=== PATIENT | male | born 1995 | race American Indian/Alaskan Native ===

== ENCOUNTER 2019-10-04 15:34 | Emergency (ER) | payer SELFPAY ==
[2019-10-04 15:40] VITALS: BP 124/87
--- NOTE | 2019-10-04 15:41 | Event Note ---
ED Screening Note Date of service: 10/04/19 Time: 15:39 ED Screening Note: 24 y/o male comes in for head injury. Had a fall and hit head. Having memory lost. This initial assessment/diagnostic orders/clinical plan/treatment(s) is/are subject to change based on patients health status, clinical progression and re- assessment by fellow clinical providers in the ED. Further treatment and workup at subsequent clinical providers discretion. Patient/guardian urged not to elope from the ED as their condition may be serious if not clinically assessed and managed. Initial orders include:
--- NOTE | 2019-10-04 16:28 | Cat Scan Report ---
CT head/brain wo con INDICATION: head injury. TECHNIQUE: Routine CT head without contrast. All CT scans at this location are performed using CT dose reduction for ALARA by means of automated exposure control. COMPARISON: None. FINDINGS: BRAIN / INTRACRANIAL CONTENTS: No acute hemorrhage, brain edema, mass effect, or hydrocephalus. Keren l vargas-white differentiation. No chronic infarct or focal atrophy. Normal brain volume and ventricula r/sulcal size for age. CALVARIUM/SKULL BASE/CRANIOCERVICAL JUNCTION: No evidence of fracture. ORBITS: No significant abnormality of visualized orbits. SINUSES / MASTOIDS: No significant abnormality of visualized sinuses and mastoid air cells. ADDITIONAL FINDINGS: None. IMPRESSION: 1. Negative head CT. Signer Name: Sidney Stephenson MD Signed: 10/04/2019 4:24 PM Workstation Name: [id number]
--- NOTE | 2019-10-04 16:54 | Emergency Department Report ---
Head Injury w/o Laceration - HPI Chief Complaint: Head Injury Stated Complaint: POSS CONCUSSION Time Seen by Provider: 10/04/19 15:39 Occurred When: Today Mechanism: Fall Severity: mild Head Inj w/o Lac: No Loss of Consciousness, No Nausea, No Blurred Vision, No Altered Mental Status, No Headache, No Focal Deficit, No Swelling, No Bruising, No Break in Skin, No Bleeding Other History: 24-year-old male presents to the ED today stating that he fell down the stairs and hit his head earlier today. Patient is here today with his father stating that after falling down the stairs patient was able to get up. Patient states that he does not remember falling down stairs. He doesn't remember hitting his head. ED General PMH - Past Medical History General Medical History: no medical history Surgical History: no surgical history - Family History Significant Family History: no pertinent family hx - Social History Smoking Status: Current Every Day Smoker Alcohol Use: none ED Neuro ROS - Review of Systems Constitutional: no symptoms reported Eyes (ROS): no symptoms reported Ears, Nose, Mouth, Throat: no symptoms reported Respiratory: no symptoms reported Cardiology: no symptoms reported Gastrointestinal/Abdominal: no symptoms reported Genitourinary: no symptoms reported Musculoskeletal: no symptoms reported Skin: no symptoms reported Neurological: no symptoms reported Head Injury W/O Lac Exam - Exam General: Vital signs noted. No distress. Alert and acting appropriately. Head: Yes Pupils are PERRL, No Hemotympanum, No Hematoma/Ecchymosis, No Epistaxis, No Stepoff/Deformity, No Laceration, No Abrasion Chest, Abd, & Ext: Yes Clear Lung Sounds, Yes Regular Heart Rhythm, No Neck Pain, No Chest Injury/Pain, No Heart Murmur, No Abdominal Tenderness, No Back Tenderness, No Extremity Injury Neuroligical (Head Inj W/O Lac: Yes Normal Speech, Yes Normal Gait, No Lethargy, No Disorientation, No Focal Numbness, No Focal Weakness Exam: Patient had no neurological deficit. Full range of motion in all extremities. No loss of sensation ED Disposition Clinical Impression: Fall (on) (from) other stairs and steps, initial encounter Disposition: DC- TO HOME OR SELFCARE Is pt being admited?: No Does the pt Need Aspirin: No Condition: Stable Instructions: Minor Head Injury (ED), Concussion (ED) Additional Instructions: Make sure to follow up with the primary care physician as discussed. Take all your medications as you've been prescribed. If you have any worsening symptoms or develop new symptoms please return to ED immediately. Referrals: [facility] [Outside] - 3-5 Days [facility] [Outside] - 3-5 Days [facility] [Outside] - 3-5 Days GAB FONTENOT MD [Staff Physician] - 3-5 Days Forms: Accompanied Note, Work/School Release Form(ED) Time of Disposition: 17:08 ED Medical Decision Making - Radiology Data Radiology results: report reviewed, image reviewed CT head/brain wo con INDICATION: head injury. TECHNIQUE: Routine CT head without contrast. All CT scans at this location are performed using CT dose reduction for ALARA by means of automated exposure control. COMPARISON: None. FINDINGS: BRAIN / INTRACRANIAL CONTENTS: No acute hemorrhage, brain edema, mass effect, or hydrocephalus. Normal vargas-white differentiation. No chronic infarct or focal atrophy. Normal brain volume and ventricular/sulcal size for age. CALVARIUM/SKULL BASE/CRANIOCERVICAL JUNCTION: No evidence of fracture. ORBITS: No significant abnormality of visualized orbits. SINUSES / MASTOIDS: No significant abnormality of visualized sinuses and mastoid air cells. ADDITIONAL FINDINGS: None. IMPRESSION: 1. Negative head CT. Signer Name: Sidney Stephenson MD Signed: 10/04/2019 4:24 PM Workstation Name: [id number] Transcribed By: RUSSEL Dictated By: Sidney Stephenson MD Electronically Authenticated By: Sidney Stephenson MD Signed Date/Time: 10/04/19 1624 - Medical Decision Making 24-year-old male presents status post fall. CT scan of the head was ordered due to patient stating that he lost consciousness. Patient had no neurological deficit. CT scan shows no acute findings C report above. I discussed findings with patient and his father. I discussed with the patient to follow-up with primary care physician. Vital signs are normal. Patient is ambulatory in no acute respiratory distress. Patient shows no signs of neurological deficit he's taking in clear sentences
== END 2019-10-04 17:38 | disposition home or self-care (01) ==
LOC: ED 15:34
DX: S09.90XA Unspecified injury of head, initial encounter (principal); F17.200 Nicotine dependence, unspecified, uncomplicated; Z91.018 Allergy to other foods; W10.9XXA Fall (on) (from) unspecified stairs and steps, initial encounter; Y93.89 Activity, other specified; Y92.89 Other specified places as the place of occurrence of the external cause; Y99.8 Other external cause status
CPT/HCPCS: 70450